=== PATIENT | female | born 1935 | race Caucasian/White ===

== ENCOUNTER → 2016-09-18 | Outpatient (CLI) | payer OTHER, MEDICARE ==
[~2016-09-18] MED LIST: AMLODIPINE BESY10 MG PO; ATORVASTATIN CA10 MG PO; VITAMIN B12 100MCG PO; VITAMIN D1000 INTUN PO
== END | disposition home or self-care (01) ==
DX: M17.11 Unilateral primary osteoarthritis, right knee (principal)
CPT/HCPCS: 97110 GP; 97150 GO; 97161 GP; 97165 GO; G8978 GP; G8979 GP; G8980 GP; G8987 GO; G8988 GO; G8989 GO

== ENCOUNTER 2016-10-29 11:22 | Inpatient (IN) | payer OTHER, MEDICARE ==
[~2016-10-29] VITALS: Ht 154.9 cm; Wt 76.7 kg
[~2016-10-29 11:22] MED LIST changes: +IRON325 M1 PO; +MULTI-DAY VITA1 EACH PO
[2016-10-29 12:05] VITALS: BP 154/72
[2016-10-29 12:20] VITALS: BP 154/72
[2016-10-29 15:59] LABS: HEMATOCRIT 34.9 % (36.0-46.0); MCH 31.1 PG (29.0-34.0); MCHC 33.2 G/DL (30.0-36.0); MCV 93.6 FL (83-99); MEAN PLAT.VOLUME 9.9 uM^3 (9.5-12.4); PLATELET COUNT 268 K/uL (156-360); RBC DIS.WIDTH-CV 12.6 % (11.8-14.6); RBC DIS.WIDTH-SD 43.2 % (39-53); RED BLOOD COUNT 3.73 M/uL (3.80-5.20); WHITE BLOOD COUNT 6.9 K/uL (4.1-10.2)
[2016-10-29 16:30] VITALS: BP 130/63
[2016-10-29 20:11] VITALS: BP 169/76
[2016-10-30 00:14] VITALS: BP 162/72
[2016-10-30 04:24] VITALS: BP 134/64
[2016-10-30 06:06] LABS: MCV 93.8 FL (83-99)
[2016-10-30 06:29] LABS: ANION GAP 9 MEQ/L (2-14); CHLORIDE 102 MEQ/L (99-109); GFR ESTIMATE (CALCULATED) > 59 mL/min/; GLUCOSE 114 mg/dL (70-99); POTASSIUM 3.6 MEQ/L (3.7-5.4); SAMPLE HEMOLYSIS CHECK 0; SAMPLE ICTERIC CHECK 0; SAMPLE LIPEMIA CHECK 0; SODIUM 137 MEQ/L (136-147); UREA NITROGEN (BUN) 11 mg/dL (9-23)
[2016-10-30 08:09] VITALS: BP 179/79
[2016-10-30 12:18] VITALS: BP 172/76
[2016-10-30 16:03] VITALS: BP 136/63
[2016-10-30 20:23] VITALS: BP 153/70
[2016-10-31 00:18] VITALS: BP 181/74
[2016-10-31 04:00] VITALS: BP 174/79
[2016-10-31 05:26] LABS: HEMATOCRIT 35.1 % (36.0-46.0); MCV 92.6 FL (83-99)
[2016-10-31 08:00] VITALS: BP 173/74
[2016-10-31] MEDS ORDERED: IRON325 M1 PO (08:33)
[2016-10-31] MEDS ORDERED: ENDOCET 5-3251 EACH PO (08:34)
[2016-10-31] MEDS ORDERED: DOCUSATE SODIU100 MG PO (08:34)
[2016-10-31] MEDS ORDERED: CELECOXIB200 MG PO (08:34)
[2016-10-31] MEDS ORDERED: LOVENOX40 MG/0.4 SC (08:34)
[2016-10-31 11:40] VITALS: BP 144/62
[2016-10-31 14:51] VITALS: BP 137/88
== END 2016-10-31 16:41 | DRG 470 ==
LOC: 2SOUTH 11:22 → 3WEST 16:28
PROVIDERS: Orthopaedic Surgery
PROC: 0SRC0J9 Replacement of Right Knee Joint with Synthetic Substitute, Cemented, Open Approach (ICD-10-PCS; principal; 2016-10-29)
DX: M17.11 Unilateral primary osteoarthritis, right knee (principal); I10 Essential (primary) hypertension; I25.10 Atherosclerotic heart disease of native coronary artery without angina pectoris; I44.7 Left bundle-branch block, unspecified; I49.3 Ventricular premature depolarization
CPT/HCPCS: 73560; 80048; 84132; 85014; 85018; 85027; J0690; J1170; J1650; J2175; J2250; J2405; J3010; J7050

== ENCOUNTER 2017-02-14 03:47 | Emergency (ER) | payer OTHER, MEDICARE ==
[~2017-02-14] VITALS: Ht 157.5 cm; Wt 78.2 kg
[~2017-02-14 03:47] MED LIST changes: +CELECOXIB200 MG PO; +DOCUSATE SODIU100 MG PO; +ENDOCET 5-3251 EACH PO; +LOVENOX40 MG/0.4 SC
[2017-02-14 04:22] LABS: HEMATOCRIT 38.7 % (36.0-46.0); MCHC 33.1 G/DL (30.0-36.0); MCV 90.6 FL (83-99); MEAN PLAT.VOLUME 10.3 uM^3 (9.5-12.4); PLATELET COUNT 299 K/uL (156-360); RBC DIS.WIDTH-CV 12.9 % (11.8-14.6); RBC DIS.WIDTH-SD 42.7 % (39-53); RED BLOOD COUNT 4.27 M/uL (3.80-5.20); WHITE BLOOD COUNT 8.8 K/uL (4.1-10.2)
[2017-02-14 04:30] LABS: CHLORIDE 103 mEq/L (99-109)
[2017-02-14 04:31] LABS: POTASSIUM 3.6 mEq/L (3.7-5.4); SODIUM 139 mEq/L (136-147)
[2017-02-14 04:33] LABS: GLUCOSE 141 mg/dL (70-99)
[2017-02-14 04:34] LABS: ANION GAP 13 MEQ/L (2-14)
[2017-02-14 04:35] LABS: TOTAL BILIRUBIN 0.5 mg/dL (0.0-1.0)
[2017-02-14 04:36] LABS: ALKALINE PHOSPHATASE 71 IU/L (3-129)
[2017-02-14 04:37] LABS: GFR ESTIMATE (CALCULATED) > 59 mL/min/
[2017-02-14 04:38] LABS: DIRECT BILIRUBIN 0.2 mg/dL (0.0-0.3); UREA NITROGEN (BUN) 21 mg/dL (9-23)
[2017-02-14 04:40] LABS: LIPASE 30 U/L (1.0-51.0)
[2017-02-14 05:23] LABS: ADD MIUA? YES; BILIRUBIN NEGATIVE; BLOOD MODERATE; COLOR YELLOW ((YELLOW)); GLUCOSE (STRIP) NEGATIVE; KETONES NEGATIVE; LEUKOCYTES SMALL; NITRITE NEGATIVE; PROTEIN (STRIP) 30; SPECIFIC GRAVITY 1.011 (1.000-1.030); UROBILINOGEN 0.2 MG/DL (0.2-1.0)
[2017-02-14 05:35] VITALS: BP 156/66
[2017-02-14] MEDS ORDERED: KEFLEX500 MG PO (05:37)
[2017-02-14] MEDS ORDERED: ZOFRAN4 MG PO (05:37)
[2017-02-14] MEDS ORDERED: PERCOCET 5/31 TABLET PO (05:37)
[2017-02-14] MEDS ORDERED: FLOMAX0.4 MG PO (05:37)
[2017-02-14 06:03] LABS: AMORPHOUS URATES CRYSTALS 1+; BACTERIA NONE SEEN /HPF; EPITHELIAL CELLS 1+ /HPF; MUCUS 1+ /LPF; RED BLOOD CELLS 30-40 /HPF (0-5); UCUL ADDED? NO
== END 2017-02-14 06:46 | disposition home or self-care (01) ==
LOC: EME → EDBD 03:47 → EME 06:46
PROVIDERS: Emergency Medicine
DX: N13.2 Hydronephrosis with renal and ureteral calculous obstruction (principal); I10 Essential (primary) hypertension
CPT/HCPCS: 74176; 80048; 80076; 81003; 83690; 85027; 99281; 99284; J7030

== ENCOUNTER 2017-03-02 11:05 | Inpatient (IN) | payer OTHER, MEDICARE ==
[~2017-03-02] VITALS: Ht 154.9 cm; Wt 69.7 kg
[~2017-03-02 11:05] MED LIST changes: +FLOMAX0.4 MG PO; +KEFLEX500 MG PO; +PERCOCET 5/31 TABLET PO; +ZOFRAN4 MG PO
[2017-03-02 11:59] LABS: HEMATOCRIT 40.3 % (36.0-46.0); MCH 30.8 PG (29.0-34.0); MCHC 33.5 G/DL (30.0-36.0); MCV 91.8 FL (83-99); MEAN PLAT.VOLUME 9.6 uM^3 (9.5-12.4); PLATELET COUNT 328 K/uL (156-360); RBC DIS.WIDTH-CV 12.4 % (11.8-14.6); RBC DIS.WIDTH-SD 41.9 % (39-53); RED BLOOD COUNT 4.39 M/uL (3.80-5.20); WHITE BLOOD COUNT 14.8 K/uL (4.1-10.2)
[2017-03-02 12:22] LABS: CHLORIDE 100 mEq/L (99-109)
[2017-03-02 12:23] LABS: POTASSIUM 3.4 mEq/L (3.7-5.4); SODIUM 138 mEq/L (136-147)
[2017-03-02 12:25] LABS: GLUCOSE 123 mg/dL (70-99)
[2017-03-02 12:26] LABS: ANION GAP 11 MEQ/L (2-14)
[2017-03-02 12:27] LABS: TOTAL BILIRUBIN 1.1 mg/dL (0.0-1.0)
[2017-03-02 12:28] LABS: ALKALINE PHOSPHATASE 80 IU/L (3-129); GFR ESTIMATE (CALCULATED) 51 mL/min/
[2017-03-02 12:30] LABS: UREA NITROGEN (BUN) 11 mg/dL (9-23)
[2017-03-02 13:39] LABS: ADD MIUA? YES; BILIRUBIN NEGATIVE; BLOOD SMALL; COLOR AMBER ((YELLOW)); GLUCOSE (STRIP) NEGATIVE; KETONES 20; LEUKOCYTES LARGE; NITRITE NEGATIVE; PROTEIN (STRIP) 100; SPECIFIC GRAVITY 1.029 (1.000-1.030); UROBILINOGEN 0.2 MG/DL (0.2-1.0)
[2017-03-02 14:11] LABS: BACTERIA 1+ /HPF; CRYSTALS PRESENT; EPITHELIAL CELLS RARE /HPF; MUCUS NONE SEEN /LPF; UCUL ADDED? NO; WHITE BLOOD CELLS 15-20 /HPF (0-5)
[2017-03-02 14:12] LABS: CALCIUM OXALATE CRYSTALS FEW /HPF
[2017-03-02] MEDS ORDERED: PERCOCET 5/31 TABLET PO (15:53)
[2017-03-02] MEDS ORDERED: FLOMAX0.4 MG PO (15:55)
[2017-03-02 17:38] VITALS: BP 182/77
[2017-03-02 19:47] VITALS: BP 171/53
[2017-03-02 20:20] VITALS: BP 152/68
[2017-03-02 23:22] VITALS: BP 154/56
[2017-03-03 03:53] VITALS: BP 138/64
[2017-03-03 06:50] LABS: ANION GAP 8 MEQ/L (2-14); CHLORIDE 108 MEQ/L (99-109); GFR ESTIMATE (CALCULATED) > 59 mL/min/; GLUCOSE 97 mg/dL (70-99); SAMPLE HEMOLYSIS CHECK 0; SAMPLE ICTERIC CHECK 0; SAMPLE LIPEMIA CHECK 0; SODIUM 140 MEQ/L (136-147); UREA NITROGEN (BUN) 13 mg/dL (9-23)
[2017-03-03 06:55] LABS: POTASSIUM 4.1 MEQ/L (3.7-5.4)
[2017-03-03 07:10] VITALS: BP 137/60
[2017-03-03 07:10] LABS: HEMATOCRIT 31.1 % (36.0-46.0); MCH 30.7 PG (29.0-34.0); MCHC 33.1 G/DL (30.0-36.0); MCV 92.8 FL (83-99); MEAN PLAT.VOLUME 9.9 uM^3 (9.5-12.4); PLATELET COUNT 243 K/uL (156-360); RBC DIS.WIDTH-CV 12.8 % (11.8-14.6); RBC DIS.WIDTH-SD 43.5 % (39-53); WHITE BLOOD COUNT 12.2 K/uL (4.1-10.2)
[2017-03-03 07:12] LABS: RED BLOOD COUNT 3.35 M/uL (3.80-5.20)
[2017-03-03 11:30] VITALS: BP 135/63
[2017-03-03 15:20] VITALS: BP 159/72
[2017-03-03 19:03] VITALS: BP 143/64
[2017-03-03 22:49] VITALS: BP 147/67
[2017-03-04 06:27] LABS: HEMATOCRIT 31.4 % (36.0-46.0); MCH 30.7 PG (29.0-34.0); MCHC 32.5 G/DL (30.0-36.0); MCV 94.6 FL (83-99); PLATELET COUNT 250 K/uL (156-360); RBC DIS.WIDTH-CV 12.8 % (11.8-14.6); RBC DIS.WIDTH-SD 44.5 % (39-53); RED BLOOD COUNT 3.32 M/uL (3.80-5.20); WHITE BLOOD COUNT 8.6 K/uL (4.1-10.2)
[2017-03-04 06:49] LABS: ANION GAP 9 MEQ/L (2-14); CHLORIDE 105 MEQ/L (99-109); GFR ESTIMATE (CALCULATED) > 59 mL/min/; GLUCOSE 76 mg/dL (70-99); POTASSIUM 3.9 MEQ/L (3.7-5.4); SAMPLE HEMOLYSIS CHECK 0; SAMPLE ICTERIC CHECK 0; SAMPLE LIPEMIA CHECK 0; SODIUM 138 MEQ/L (136-147); UREA NITROGEN (BUN) 10 mg/dL (9-23)
[2017-03-04 09:00] VITALS: BP 181/77
[2017-03-04 11:41] VITALS: BP 137/61
[2017-03-04 20:20] VITALS: BP 159/72
[2017-03-05 00:25] VITALS: BP 167/74
[2017-03-05 04:44] VITALS: BP 165/69
[2017-03-05 08:39] VITALS: BP 184/80
[2017-03-05 16:23] VITALS: BP 157/72
[2017-03-05 19:10] VITALS: BP 170/82
[2017-03-05 22:48] VITALS: BP 144/64
[2017-03-06 06:55] LABS: HEMATOCRIT 31.6 % (36.0-46.0); MCH 31.6 PG (29.0-34.0); MCHC 33.9 G/DL (30.0-36.0); MCV 93.2 FL (83-99); PLATELET COUNT 271 K/uL (156-360); RBC DIS.WIDTH-CV 12.8 % (11.8-14.6); RBC DIS.WIDTH-SD 43.7 % (39-53); RED BLOOD COUNT 3.39 M/uL (3.80-5.20); WHITE BLOOD COUNT 7.3 K/uL (4.1-10.2)
[2017-03-06 07:21] LABS: ANION GAP 9 MEQ/L (2-14); CHLORIDE 101 MEQ/L (99-109); GFR ESTIMATE (CALCULATED) > 59 mL/min/; GLUCOSE 88 mg/dL (70-99); SAMPLE HEMOLYSIS CHECK 0; SAMPLE ICTERIC CHECK 0; SAMPLE LIPEMIA CHECK 0; SODIUM 142 MEQ/L (136-147); UREA NITROGEN (BUN) 4 mg/dL (9-23)
[2017-03-06 07:30] VITALS: BP 164/76
[2017-03-06] MEDS ORDERED: DOCUSATE SODIU100 MG PO (11:22)
[2017-03-06] MEDS ORDERED: FLOMAX0.4 MG PO (11:22)
[2017-03-06] MEDS ORDERED: PERCOCET 5/31 TABLET PO (11:22)
[2017-03-06 12:18] VITALS: BP 169/73
== END 2017-03-06 13:20 | disposition home or self-care (01) | DRG 669 ==
LOC: EME 11:05 → EDOF 16:11 → 5EAST 16:11
PROVIDERS: Internal Medicine; Nurse Practitioner Family; Urology
DX: N13.2 Hydronephrosis with renal and ureteral calculous obstruction (principal); N39.0 Urinary tract infection, site not specified; I48.91 Unspecified atrial fibrillation; I10 Essential (primary) hypertension; I25.10 Atherosclerotic heart disease of native coronary artery without angina pectoris; I44.7 Left bundle-branch block, unspecified; I70.1 Atherosclerosis of renal artery; K59.00 Constipation, unspecified; R60.9 Edema, unspecified; M19.90 Unspecified osteoarthritis, unspecified site; E78.5 Hyperlipidemia, unspecified; H93.19 Tinnitus, unspecified ear; E66.9 Obesity, unspecified; Z68.29 Body mass index [BMI] 29.0-29.9, adult; Z87.442 Personal history of urinary calculi; Z85.828 Personal history of other malignant neoplasm of skin; Z96.612 Presence of left artificial shoulder joint; Z96.651 Presence of right artificial knee joint
CPT/HCPCS: 74000; 74020; 74176; 76000; 76770; 80048; 80053; 81003; 82365 90; 85027; 87086; 93005; 94799; 99281; 99285; C1769; C1876; J0360; J0696; J1170; J1650; J1885; J2175; J2250; J2270; J2405; J3010; J7030; J7050; J7120; S0028

== ENCOUNTER 2017-07-07 22:03 | Inpatient (IN) | payer OTHER, MEDICARE ==
[~2017-07-07] VITALS: Ht 154.9 cm; Wt 69.0 kg
[~2017-07-07 22:03] MED LIST changes: +ALEVE220 MG PO; +DAILY MULTIPLE1 EAC2 PO
[2017-07-08 07:28] VITALS: BP 153/67
[2017-07-08 12:00] LABS: MCH 30.9 PG (29.0-34.0); MCHC 33.4 G/DL (30.0-36.0); MCV 92.3 FL (83-99); PLATELET COUNT 280 K/uL (156-360); RBC DIS.WIDTH-CV 12.7 % (11.8-14.6); RED BLOOD COUNT 3.79 M/uL (3.80-5.20); WHITE BLOOD COUNT 8.6 K/uL (4.1-10.2)
[2017-07-08 12:11] VITALS: BP 138/62
[2017-07-08 16:10] VITALS: BP 110/62
[2017-07-08 20:15] VITALS: BP 145/64
[2017-07-09 00:10] VITALS: BP 142/62
[2017-07-09 04:00] VITALS: BP 124/57
[2017-07-09 05:32] LABS: HEMATOCRIT 31.6 % (36.0-46.0)
[2017-07-09 05:58] LABS: ANION GAP 5 MEQ/L (2-14); CHLORIDE 103 MEQ/L (99-109); GFR ESTIMATE (CALCULATED) > 59 mL/min/; GLUCOSE 91 mg/dL (70-99); POTASSIUM 3.9 MEQ/L (3.7-5.4); SAMPLE HEMOLYSIS CHECK 0; SAMPLE ICTERIC CHECK 0; SAMPLE LIPEMIA CHECK 0; UREA NITROGEN (BUN) 15 mg/dL (9-23)
[2017-07-09 06:30] LABS: SODIUM 136 MEQ/L (136-147)
[2017-07-09 08:19] VITALS: BP 138/85
[2017-07-09 12:17] VITALS: BP 145/67
[2017-07-09 15:48] VITALS: BP 151/65
[2017-07-09 19:53] VITALS: BP 146/70
[2017-07-10 00:27] VITALS: BP 171/73
[2017-07-10 04:13] VITALS: BP 146/62
[2017-07-10 05:40] LABS: HEMATOCRIT 31.8 % (36.0-46.0); MCV 92.7 FL (83-99)
[2017-07-10 08:13] VITALS: BP 157/68
[2017-07-10] MEDS ORDERED: LOVENOX40 MG/0.4 SC (08:21)
[2017-07-10] MEDS ORDERED: DOCUSATE SODIU100 MG PO (08:21)
[2017-07-10] MEDS ORDERED: HYDROCODON-ACE1 EAC7 PO (08:21)
[2017-07-10 12:07] VITALS: BP 143/62
== END 2017-07-10 13:10 | DRG 502 ==
LOC: ENRESERV 22:03 → 2SOUTH 07-08 06:27 → 3WEST 07-08 11:55
PROVIDERS: Orthopaedic Surgery
PROC: 0MNN0ZZ Release Right Knee Bursa and Ligament, Open Approach (ICD-10-PCS; principal; 2017-07-08)
DX: T84.092A Other mechanical complication of internal right knee prosthesis, initial encounter (principal); Y83.1 Surgical operation with implant of artificial internal device as the cause of abnormal reaction of the patient, or of later complication, without mention of misadventure at the time of the procedure; I10 Essential (primary) hypertension; H93.19 Tinnitus, unspecified ear; M19.90 Unspecified osteoarthritis, unspecified site; Z85.828 Personal history of other malignant neoplasm of skin; I49.9 Cardiac arrhythmia, unspecified
CPT/HCPCS: 73562; 80048; 85014; 85018; 85027; J0131; J0690; J1650; J3010; J7030; J7050

== ENCOUNTER 2017-12-31 09:59 | Inpatient (IN) | payer OTHER, MEDICARE ==
[~2017-12-31] VITALS: Ht 154.9 cm; Wt 74.5 kg
[~2017-12-31 09:59] MED LIST changes: +HYDROCODON-ACE1 EAC7 PO
[2017-12-31 10:41] LABS: HEMATOCRIT 27.6 % (36.0-46.0); MCH 29.9 PG (29.0-34.0); MCHC 33.3 G/DL (30.0-36.0); MCV 89.6 FL (83-99); RBC DIS.WIDTH-CV 16.9 % (11.8-14.6); RBC DIS.WIDTH-SD 52.8 % (39-53); WHITE BLOOD COUNT 11.3 K/uL (4.1-10.2)
[2017-12-31 10:44] LABS: HEMOGLOBIN 9.2 G/DL (11.9-15.5); PLATELET COUNT 282 K/uL (156-360); RED BLOOD COUNT 3.08 M/uL (3.80-5.20)
[2017-12-31 10:48] LABS: INTER. NORMALIZED RATIO 1.4
[2017-12-31 10:50] LABS: PTT 26.8 SEC (25-37)
[2017-12-31 10:52] LABS: CHLORIDE 97 mEq/L (99-109); POTASSIUM 3.2 mEq/L (3.7-5.4); SODIUM 134 mEq/L (136-147)
[2017-12-31 10:53] LABS: MAGNESIUM 1.4 mg/dL (1.3-2.7)
[2017-12-31 10:54] LABS: GLUCOSE 93 mg/dL (70-99)
[2017-12-31 10:58] LABS: CREATININE 0.8 mg/dL (0.6-1.3); GFR ESTIMATE (CALCULATED) > 59 mL/min/
[2017-12-31 10:59] LABS: UREA NITROGEN (BUN) 12 mg/dL (9-23)
[2017-12-31 11:04] LABS: TROP-I INTERPRETATION NEGATIVE; TROPONIN-I 0.09 ng/mL (0.0-0.30)
[2017-12-31 12:10] LABS: ANISOCYTOSIS 2+; BASOPHIL (%) 0.1 % (0-1); EOSINOPHIL (%) 0.5 % (0-5); EOSINOPHIL COUNT 0.1 K/uL (0-0.3); IMMATURE GRANULOCYTE (%) 1.9 % (0.0-0.7); LYMPHOCYTE (%) 15.6 % (15-42); LYMPHOCYTE COUNT 1.8 K/uL (1.0-2.8); MACROCYTES 1+; MICROCYTOSIS 1+; MONOCYTE (%) 9.4 % (3-12); MONOCYTE COUNT 1.1 K/uL (0-0.8); NEUTROPHIL (%) 72.5 % (45-76); NEUTROPHIL COUNT 8.2 K/uL (1.8-6.4); POLYCHROMASIA 1+
[2017-12-31 15:12] LABS: APPEARANCE CLEAR ((CLEAR)); BILIRUBIN NEGATIVE; BLOOD NEGATIVE; COLOR STRAW ((YELLOW)); GLUCOSE (STRIP) NEGATIVE; KETONES NEGATIVE; LEUKOCYTES NEGATIVE; NITRITE NEGATIVE; PROTEIN (STRIP) NEGATIVE; SPECIFIC GRAVITY 1.012 (1.000-1.030); UCUL ADDED? NO; UROBILINOGEN 0.2 MG/DL (0.2-1.0)
[2017-12-31 16:45] VITALS: BP 150/79
[2017-12-31 18:13] LABS: TROP-I INTERPRETATION NEGATIVE; TROPONIN-I 0.15 ng/mL (0.0-0.30)
[2017-12-31 18:20] LABS: ALBUMIN 2.2 G/DL (3.2-4.8); ALKALINE PHOSPHATASE 58 IU/L (3-129); ALT (GPT) 14 IU/L (3-49); AST (GOT) 16 IU/L (2-34); DIRECT BILIRUBIN 0.1 mg/dL (0.0-0.3); TOTAL BILIRUBIN 0.5 MG/DL (0.0-1.0); TOTAL PROTEIN 8.3 G/DL (6.4-8.3)
[2017-12-31 19:00] VITALS: BP 149/69
[2018-01-01 00:45] VITALS: BP 161/87
[2018-01-01 00:52] LABS: TROP-I INTERPRETATION NEGATIVE; TROPONIN-I 0.15 ng/mL (0.0-0.30)
[2018-01-01 03:20] LABS: HEMATOCRIT 28.4 % (36.0-46.0); HEMOGLOBIN 9.5 G/DL (11.9-15.5); MCH 30.2 PG (29.0-34.0); MCHC 33.5 G/DL (30.0-36.0); MCV 90.2 FL (83-99); NRBC (%) 0.2 /100 WBC (0-0); PLATELET COUNT 299 K/uL (156-360); RBC DIS.WIDTH-CV 17.2 % (11.8-14.6); RBC DIS.WIDTH-SD 53.9 % (39-53); RED BLOOD COUNT 3.15 M/uL (3.80-5.20)
[2018-01-01 03:28] LABS: ALBUMIN 2.5 g/dL (3.2-4.8)
[2018-01-01 03:29] LABS: CHLORIDE 98 mEq/L (99-109); POTASSIUM 3.5 mEq/L (3.7-5.4); SODIUM 133 mEq/L (136-147)
[2018-01-01 03:31] LABS: GLUCOSE 109 mg/dL (70-99); TOTAL PROTEIN 9.4 g/dL (6.4-8.3)
[2018-01-01 03:33] LABS: TOTAL BILIRUBIN 0.5 mg/dL (0.0-1.0)
[2018-01-01 03:33] LABS: BASE EXCESS 1.9 mEq/L (-3 to +3); BICARBONATE 25.1 mEq/L (22-26); CARBOXY HGB 1.8 % (0-5); METHEMOGLOBIN 1.2 % (0-1.5); PCO2 33 mm Hg (35-45); PO2 52 mm Hg (80-100); pH 7.49 (7.35-7.45)
[2018-01-01 03:34] LABS: ALKALINE PHOSPHATASE 82 IU/L (3-129)
[2018-01-01 03:34] LABS: COMMENTS - BLOOD GASES C+A+; DEVICE HIGH FLOW NC; O2 FLOW 15 L/MIN; SITE RR
[2018-01-01 03:35] LABS: GFR ESTIMATE (CALCULATED) 57 mL/min/
[2018-01-01 03:36] LABS: AST (GOT) 24 IU/L (2-34); UREA NITROGEN (BUN) 15 mg/dL (9-23)
[2018-01-01 03:37] LABS: ALT (GPT) 18 IU/L (3-49)
[2018-01-01 03:41] LABS: TROP-I INTERPRETATION NEGATIVE; TROPONIN-I 0.12 ng/mL (0.0-0.30)
[2018-01-01 04:12] VITALS: BP 180/92
[2018-01-01 07:58] VITALS: BP 113/70; BP 138/82
[2018-01-01 11:46] VITALS: BP 162/86
[2018-01-01] MEDS ORDERED: XANAX0.25 MG PO (13:03)
[2018-01-01] MEDS ORDERED: KEFLEX500 MG PO (13:04)
[2018-01-01] MEDS ORDERED: LASIX20 MG PO (13:05)
[2018-01-01] MEDS ORDERED: LEXAPRO10 MG PO (13:05)
[2018-01-01] MEDS ORDERED: METOPROLOL SUCC50 MG PO (13:06)
[2018-01-01] MEDS ORDERED: NORVASC10 MG PO (13:07)
[2018-01-01] MEDS ORDERED: PREDNISONE50 MG PO (13:07)
[2018-01-01] MEDS ORDERED: CYANOCOBALAM1000 MCG PO (13:08)
[2018-01-01] MEDS ORDERED: VIBRAMYCIN100 MG PO (13:09)
[2018-01-01] MEDS ORDERED: IRON325 M1 PO (13:09)
[2018-01-01] MEDS ORDERED: CLARITIN-D 21 TABLET PO (13:10)
[2018-01-01 17:23] VITALS: BP 162/81
[2018-01-01 20:00] VITALS: BP 168/80
[2018-01-02] VITALS (7 sets, daily range): BP systolic 151–180; BP diastolic 69–93
[2018-01-02 05:18] LABS: HEMATOCRIT 26.5 % (36.0-46.0); HEMOGLOBIN 8.6 G/DL (11.9-15.5); MCH 29.9 PG (29.0-34.0); MCHC 32.5 G/DL (30.0-36.0); PLATELET COUNT 323 K/uL (156-360); RBC DIS.WIDTH-CV 17.6 % (11.8-14.6); RBC DIS.WIDTH-SD 55.9 % (39-53); RED BLOOD COUNT 2.88 M/uL (3.80-5.20); WHITE BLOOD COUNT 10.2 K/uL (4.1-10.2)
[2018-01-02 05:44] LABS: CHLORIDE 96 MEQ/L (99-109); GFR ESTIMATE (CALCULATED) 57 mL/min/; GLUCOSE 95 mg/dL (70-99); IRON 39 MCG/DL (35-150); POTASSIUM 3.6 MEQ/L (3.7-5.4); SODIUM 132 MEQ/L (136-147); TRANSFERRIN (TIBC) 126.3 mg/dL (215-380); TRANSFERRIN SATUR. 31 % (20-55); UREA NITROGEN (BUN) 19 mg/dL (9-23)
[2018-01-02 06:26] LABS: ANISOCYTOSIS 1+; BASOPHIL (%) 0.1 % (0-1); EOSINOPHIL (%) 0.3 % (0-5); IMMATURE GRANULOCYTE (%) 1.4 % (0.0-0.7); LYMPHOCYTE (%) 11.9 % (15-42); LYMPHOCYTE COUNT 1.2 K/uL (1.0-2.8); MACROCYTES 1+; MONOCYTE (%) 10.4 % (3-12); MONOCYTE COUNT 1.1 K/uL (0-0.8); NEUTROPHIL (%) 75.9 % (45-76); NEUTROPHIL COUNT 7.8 K/uL (1.8-6.4); PLAT.SUFFICIENCY ADEQUATE; POLYCHROMASIA 2+
[2018-01-02 07:53] LABS: FOLIC ACID (FOLATE) 12.1 NG/ML (5.0-22.0)
[2018-01-02 08:03] LABS: FERRITIN 144 NG/ML (10-291)
[2018-01-03 00:06] VITALS: BP 138/65
[2018-01-03 04:30] VITALS: BP 160/74
[2018-01-03 05:39] LABS: HEMATOCRIT 27.2 % (36.0-46.0); HEMOGLOBIN 8.7 G/DL (11.9-15.5); MCH 29.7 PG (29.0-34.0); MCV 92.8 FL (83-99); PLATELET COUNT 338 K/uL (156-360); RBC DIS.WIDTH-CV 18.5 % (11.8-14.6); RBC DIS.WIDTH-SD 58.7 % (39-53); RED BLOOD COUNT 2.93 M/uL (3.80-5.20); WHITE BLOOD COUNT 7.9 K/uL (4.1-10.2)
[2018-01-03 06:13] LABS: ABS NEUTROPHIL COUNT 6.3; ANISOCYTOSIS 1+; ATYPICAL LYMPHOCYTE 0.9 %; CHLORIDE 97 MEQ/L (99-109); CREATININE 0.8 MG/DL (0.6-1.3); EOSINOPHIL ABS CT 0.2; EOSINOPHILS 2.6 % (0-5.0); GFR ESTIMATE (CALCULATED) > 59 mL/min/; GLUCOSE 82 mg/dL (70-99); LYMPHOCYTES 3.5 % (15.0-45.0); MACROCYTES 1+; MONOCYTES 12.3 % (0-9.0); MYELOCYTES 0.9 %; PLAT.SUFFICIENCY ADEQUATE; POLYCHROMASIA 1+; POTASSIUM 3.3 MEQ/L (3.7-5.4); SEG.NEUTROPHILS 79.8 % (46.0-76.0); SODIUM 133 MEQ/L (136-147); TOX.VACUOLIZATION 2+; UREA NITROGEN (BUN) 17 mg/dL (9-23)
[2018-01-03 08:19] VITALS: BP 174/79
[2018-01-03 09:45] LABS: STOOL OCCULT BLD 1ST SPECIMEN NEGATIVE
[2018-01-03 10:35] LABS: C DIFF TOXIN POSITIVE (NEGATIVE)
[2018-01-03 11:18] VITALS: BP 141/66
[2018-01-03 15:26] VITALS: BP 146/76
[2018-01-03 20:10] VITALS: BP 146/75
[2018-01-04 00:39] VITALS: BP 158/69
[2018-01-04 04:56] VITALS: BP 140/66
[2018-01-04 05:30] LABS: HEMATOCRIT 26.1 % (36.0-46.0); HEMOGLOBIN 8.5 G/DL (11.9-15.5); MCH 30.2 PG (29.0-34.0); MCHC 32.6 G/DL (30.0-36.0); MCV 92.9 FL (83-99); PLATELET COUNT 315 K/uL (156-360); RBC DIS.WIDTH-CV 18.4 % (11.8-14.6); RBC DIS.WIDTH-SD 58.5 % (39-53); RED BLOOD COUNT 2.81 M/uL (3.80-5.20); WHITE BLOOD COUNT 9.6 K/uL (4.1-10.2)
[2018-01-04 05:57] LABS: CHLORIDE 100 MEQ/L (99-109); CREATININE 0.8 MG/DL (0.6-1.3); GFR ESTIMATE (CALCULATED) > 59 mL/min/; GLUCOSE 85 mg/dL (70-99); POTASSIUM 4.6 MEQ/L (3.7-5.4); SODIUM 131 MEQ/L (136-147); UREA NITROGEN (BUN) 17 mg/dL (9-23)
[2018-01-04 06:53] LABS: ABS NEUTROPHIL COUNT 6.9; ATYPICAL LYMPHOCYTE 9.5 %; BASOPHILS 0.9 %; EOSINOPHIL ABS CT 0.1; EOSINOPHILS 0.9 % (0-5.0); LYMPHOCYTES 5.2 % (15.0-45.0); METAMYELOCYTES 0.9 %; MONOCYTES 10.4 % (0-9.0); SEG.NEUTROPHILS 72.2 % (46.0-76.0); SMUDGE CELLS 9.6
[2018-01-04 16:33] VITALS: BP 171/77
[2018-01-04 19:35] VITALS: BP 154/71
[2018-01-04 23:46] VITALS: BP 134/56
[2018-01-05 05:13] VITALS: BP 140/61
[2018-01-05 05:29] LABS: HEMATOCRIT 27.3 % (36.0-46.0); HEMOGLOBIN 8.6 G/DL (11.9-15.5); MCH 29.9 PG (29.0-34.0); MCHC 31.5 G/DL (30.0-36.0); MCV 94.8 FL (83-99); PLATELET COUNT 333 K/uL (156-360); RBC DIS.WIDTH-CV 18.5 % (11.8-14.6); RBC DIS.WIDTH-SD 61.7 % (39-53); RED BLOOD COUNT 2.88 M/uL (3.80-5.20); WHITE BLOOD COUNT 11.9 K/uL (4.1-10.2)
[2018-01-05 06:21] LABS: CHLORIDE 99 MEQ/L (99-109); CREATININE 0.8 MG/DL (0.6-1.3); GFR ESTIMATE (CALCULATED) > 59 mL/min/; GLUCOSE 79 mg/dL (70-99); SODIUM 133 MEQ/L (136-147); UREA NITROGEN (BUN) 15 mg/dL (9-23)
[2018-01-05 06:25] LABS: POTASSIUM 3.5 MEQ/L (3.7-5.4)
[2018-01-05 06:39] LABS: ATYPICAL LYMPHOCYTE 10.1 %; EOSINOPHIL ABS CT 0.5; EOSINOPHILS 4.6 % (0-5.0); LYMPHOCYTES 10.1 % (15.0-45.0); MONOCYTES 8.3 % (0-9.0); SEG.NEUTROPHILS 66.9 % (46.0-76.0); SMUDGE CELLS 3.7
[2018-01-05 07:28] VITALS: BP 138/72
[2018-01-05 10:57] VITALS: BP 136/76
[2018-01-05 15:13] VITALS: BP 136/82
[2018-01-05 20:35] VITALS: BP 138/59
[2018-01-06 00:10] VITALS: BP 123/58
[2018-01-06 04:30] VITALS: BP 170/71
[2018-01-06 05:19] LABS: HEMATOCRIT 27.2 % (36.0-46.0); HEMOGLOBIN 8.8 G/DL (11.9-15.5); MCH 30.7 PG (29.0-34.0); MCHC 32.4 G/DL (30.0-36.0); MCV 94.8 FL (83-99); PLATELET COUNT 330 K/uL (156-360); RBC DIS.WIDTH-CV 18.5 % (11.8-14.6); RBC DIS.WIDTH-SD 61.4 % (39-53); RED BLOOD COUNT 2.87 M/uL (3.80-5.20); WHITE BLOOD COUNT 11.6 K/uL (4.1-10.2)
[2018-01-06 05:47] LABS: CHLORIDE 99 MEQ/L (99-109); CREATININE 0.8 MG/DL (0.6-1.3); GFR ESTIMATE (CALCULATED) > 59 mL/min/; GLUCOSE 86 mg/dL (70-99); POTASSIUM 3.8 MEQ/L (3.7-5.4); SODIUM 132 MEQ/L (136-147); UREA NITROGEN (BUN) 12 mg/dL (9-23)
[2018-01-06 05:55] LABS: ABS NEUTROPHIL COUNT 7.6; ANISOCYTOSIS 2+; ATYPICAL LYMPHOCYTE 7.9 %; BASOPHILS 5.3 %; EOSINOPHIL ABS CT 0.1; EOSINOPHILS 0.9 % (0-5.0); LYMPHOCYTES 6.1 % (15.0-45.0); MACROCYTES 1+; MICROCYTOSIS 1+; PLAT.SUFFICIENCY ADEQUATE; POIKILOCYTOSIS 1+; POLYCHROMASIA 1+; SEG.NEUTROPHILS 65.8 % (46.0-76.0)
[2018-01-06 06:35] VITALS: BP 137/61
[2018-01-06] MEDS ORDERED: VANCOCIN HCL125 MG PO (16:09)
[2018-01-06] MEDS ORDERED: FUROSEMIDE40 MG PO (16:10)
[2018-01-06] MEDS ORDERED: XARELTO15 MG PO (16:10)
[2018-01-06] MEDS ORDERED: LOPRESSOR50 MG PO (16:10)
[2018-01-06] MEDS ORDERED: FLONASE16 G1 BOTH NARES (16:11)
[2018-01-06] MEDS ORDERED: DUONEB 2.5-0.5 M3 ML AEROSOL (16:16)
[2018-01-06] MEDS ORDERED: AMLODIPINE BESYL5 MG PO (16:17)
[2018-01-06] MEDS ORDERED: ENALAPRIL MALEA10 MG PO (16:17)
[2018-01-06] MEDS ORDERED: FLEXERIL5 MG PO (17:10)
[2018-01-06] MEDS ORDERED: PERCOCET 5/31 TABLET PO (17:11)
[2018-01-06 19:30] VITALS: BP 146/64
[2018-01-09 11:51] LABS: NUMBER OF MARKERS 22; SPECIMEN TYPE BONE MARROW; SPECIMEN VIABILITY 77
== END 2018-01-06 19:35 | DRG 308 ==
LOC: EME 09:59 → EDOF 14:31 → ENRESERV 14:37 → 4EAST 14:57 → EDOF 14:57 → ENRESERV 15:39 → 4EAST 16:39
PROVIDERS: Emergency Medicine; Hospitalist; Internal Medicine; Internal Medicine Hematology & Oncology
PROC: 07DR3ZX Extraction of Iliac Bone Marrow, Percutaneous Approach, Diagnostic (ICD-10-PCS; principal; 2018-01-03)
DX: I48.92 Unspecified atrial flutter (principal); J96.01 Acute respiratory failure with hypoxia; I11.0 Hypertensive heart disease with heart failure; I50.23 Acute on chronic systolic (congestive) heart failure; J18.9 Pneumonia, unspecified organism; Y95 Nosocomial condition; A04.72 Enterocolitis due to Clostridium difficile, not specified as recurrent; E87.6 Hypokalemia; E83.51 Hypocalcemia; R59.1 Generalized enlarged lymph nodes; D64.9 Anemia, unspecified; I25.10 Atherosclerotic heart disease of native coronary artery without angina pectoris; E78.5 Hyperlipidemia, unspecified; I27.20 Pulmonary hypertension, unspecified; I44.7 Left bundle-branch block, unspecified; I48.91 Unspecified atrial fibrillation; N63.0 Unspecified lump in unspecified breast; E66.9 Obesity, unspecified; Z96.651 Presence of right artificial knee joint; Z96.612 Presence of left artificial shoulder joint; Z99.81 Dependence on supplemental oxygen; Z85.828 Personal history of other malignant neoplasm of skin; Z68.30 Body mass index [BMI] 30.0-30.9, adult; Z95.0 Presence of cardiac pacemaker; Z95.810 Presence of automatic (implantable) cardiac defibrillator
CPT/HCPCS: 36600; 71045; 71275; 74177; 77012; 80048; 80053; 80076; 81003; 82272; 82607; 82728; 82746; 82803; 83540; 83605; 83615; 83735; 83880; 84466; 84484; 85007; 85025; 85027; 85610; 85651; 85730; 86611 90; 87040; 87070; 87205; 87449; 87493; 87502; 87641; 93005; 93306; 94640; 94640 76; 94760; 94799; 97530 GO; 99281; 99285; J0153; J0360; J0610; J0692; J1650; J1940; J2270; J2765; J2930; J3010; J3370; J3480; J7030; J7050

== ENCOUNTER 2018-02-05 13:06 | Inpatient (IN) | payer OTHER, MEDICARE ==
[~2018-02-05] VITALS: Ht 154.9 cm; Wt 69.4 kg
[~2018-02-05 13:06] MED LIST changes: +AMLODIPINE BESYL5 MG PO; +CLARITIN-D 21 TABLET PO; +CYANOCOBALAM1000 MCG PO; +DUONEB 2.5-0.5 M3 ML AEROSOL; +ENALAPRIL MALEA10 MG PO; +FLEXERIL5 MG PO; +FLONASE16 G1 BOTH NARES; +FUROSEMIDE40 MG PO; +LASIX20 MG PO; +LEXAPRO10 MG PO; +LOPRESSOR50 MG PO; +METOPROLOL SUCC50 MG PO; +NORVASC10 MG PO; +PREDNISONE50 MG PO; +VANCOCIN HCL125 MG PO; +VIBRAMYCIN100 MG PO; +XANAX0.25 MG PO; +XARELTO15 MG PO
[2018-02-05 13:53] LABS: HEMATOCRIT 31.5 % (36.0-46.0); HEMOGLOBIN 10.6 G/DL (11.9-15.5); MCHC 33.7 G/DL (30.0-36.0); MCV 95.2 FL (83-99); PLATELET COUNT 269 K/uL (156-360); RBC DIS.WIDTH-CV 16.3 % (11.8-14.6); RBC DIS.WIDTH-SD 57.8 % (39-53); RED BLOOD COUNT 3.31 M/uL (3.80-5.20); WHITE BLOOD COUNT 13.9 K/uL (4.1-10.2)
[2018-02-05 13:59] LABS: ALBUMIN 2.8 g/dL (3.2-4.8); CHLORIDE 96 mEq/L (99-109); POTASSIUM 3.6 mEq/L (3.7-5.4); SODIUM 134 mEq/L (136-147)
[2018-02-05 14:02] LABS: GLUCOSE 89 mg/dL (70-99); TOTAL PROTEIN 9.2 g/dL (6.4-8.3)
[2018-02-05 14:03] LABS: TOTAL BILIRUBIN 0.6 mg/dL (0.0-1.0)
[2018-02-05 14:05] LABS: ALKALINE PHOSPHATASE 85 IU/L (3-129); CREATININE 0.7 mg/dL (0.6-1.3); GFR ESTIMATE (CALCULATED) > 59 mL/min/
[2018-02-05 14:06] LABS: UREA NITROGEN (BUN) 13 mg/dL (9-23)
[2018-02-05 14:07] LABS: AST (GOT) 35 IU/L (2-34)
[2018-02-05 14:08] LABS: ALT (GPT) 26 IU/L (3-49)
[2018-02-05 15:23] LABS: ABS NEUTROPHIL COUNT 11.6; ANISOCYTOSIS 1+; ATYPICAL LYMPHOCYTE 3.6 %; BAND NEUTROPHILS 13.5 % (0-8.0); BASOPH.STIPPLING 1+; EOSINOPHIL ABS CT 0.1; EOSINOPHILS 0.9 % (0-5.0); LYMPHOCYTES 8.1 % (15.0-45.0); MACROCYTES 1+; MONOCYTES 3.6 % (0-9.0); PLAT.SUFFICIENCY ADEQUATE; POLYCHROMASIA 1+; SEG.NEUTROPHILS 70.3 % (46.0-76.0)
[2018-02-05 15:27] LABS: APPEARANCE CLEAR ((CLEAR)); BILIRUBIN NEGATIVE; BLOOD NEGATIVE; COLOR YELLOW ((YELLOW)); GLUCOSE (STRIP) NEGATIVE; KETONES NEGATIVE; LEUKOCYTES NEGATIVE; NITRITE NEGATIVE; PROTEIN (STRIP) NEGATIVE; SPECIFIC GRAVITY 1.011 (1.000-1.030); UCUL ADDED? NO; UROBILINOGEN 0.2 MG/DL (0.2-1.0)
[2018-02-05] MEDS ORDERED: FUROSEMIDE40 MG PO (17:26)
[2018-02-05] MEDS ORDERED: ENALAPRIL MALEA20 MG PO (17:26)
[2018-02-05] MEDS ORDERED: ZOFRAN8 MG PO (17:27)
[2018-02-05] MEDS ORDERED: FLONASE16 G1 BOTH NARES (17:27)
[2018-02-05] MEDS ORDERED: XANAX0.25 MG PO (17:28)
[2018-02-05] MEDS ORDERED: COMPAZINE5 MG PO (17:28)
[2018-02-05] MEDS ORDERED: PREDNISONE5 MG PO (17:30)
[2018-02-05 19:10] VITALS: BP 151/71
[2018-02-05 23:52] VITALS: BP 120/65
[2018-02-06 03:55] VITALS: BP 145/77
[2018-02-06 05:49] LABS: HEMATOCRIT 28.2 % (36.0-46.0); HEMOGLOBIN 9.1 G/DL (11.9-15.5); MCH 30.8 PG (29.0-34.0); MCHC 32.3 G/DL (30.0-36.0); MCV 95.6 FL (83-99); PLATELET COUNT 203 K/uL (156-360); RBC DIS.WIDTH-CV 16.3 % (11.8-14.6); RBC DIS.WIDTH-SD 57.2 % (39-53); RED BLOOD COUNT 2.95 M/uL (3.80-5.20); WHITE BLOOD COUNT 9.5 K/uL (4.1-10.2)
[2018-02-06 06:32] LABS: C-REACTIVE PROTEIN 107.4 MG/L (0-10); CHLORIDE 100 MEQ/L (99-109); CREATININE 0.6 MG/DL (0.6-1.3); GFR ESTIMATE (CALCULATED) > 59 mL/min/; GLUCOSE 77 mg/dL (70-99); POTASSIUM 4.1 MEQ/L (3.7-5.4); SODIUM 132 MEQ/L (136-147); UREA NITROGEN (BUN) 12 mg/dL (9-23)
[2018-02-06 09:00] VITALS: BP 158/72
[2018-02-06 09:05] LABS: ERTH.SED.RATE 58 MM/HR (0-30)
[2018-02-06 12:35] LABS: APPEARANCE HAZY-YELLOW; MONONUCLEAR WBC'S 12 %; POLYNUCLEAR WBC'S 88 % (0-25); RED CELL COUNT 21000 /MM^3 (0-1); SYNOVIAL FLUID EOSINOPHILS 0 % (0-25); WHITE CELL COUNT 36048 /MM^3 (0-200.0)
[2018-02-06 12:36] LABS: CRYSTALS NO CRYSTALS SEEN
[2018-02-06 12:48] VITALS: BP 129/67
[2018-02-06 13:04] LABS: SYNOVIAL FLUID GLUCOSE < 10.0 MG/DL; SYNOVIAL FLUID PROTEIN 4.3 G/DL
[2018-02-06 15:03] LABS: HEMATOCRIT 27.5 % (36.0-46.0); HEMOGLOBIN 9.1 G/DL (11.9-15.5); MCV 95.5 FL (83-99)
[2018-02-06 16:44] VITALS: BP 139/66
[2018-02-06 18:29] LABS: HEMATOCRIT 29.5 % (36.0-46.0); HEMOGLOBIN 9.6 G/DL (11.9-15.5); MCH 31.5 PG (29.0-34.0); MCHC 32.5 G/DL (30.0-36.0); MCV 96.7 FL (83-99); PLATELET COUNT 221 K/uL (156-360); RBC DIS.WIDTH-CV 16.3 % (11.8-14.6); RED BLOOD COUNT 3.05 M/uL (3.80-5.20); WHITE BLOOD COUNT 10.9 K/uL (4.1-10.2)
[2018-02-06 20:34] VITALS: BP 144/69
[2018-02-06 23:09] VITALS: BP 121/69
[2018-02-07 04:04] VITALS: BP 125/59
[2018-02-07 06:35] LABS: HEMATOCRIT 24.7 % (36.0-46.0); HEMOGLOBIN 8.1 G/DL (11.9-15.5); MCH 31.2 PG (29.0-34.0); MCHC 32.8 G/DL (30.0-36.0); PLATELET COUNT 203 K/uL (156-360); RBC DIS.WIDTH-CV 15.9 % (11.8-14.6); WHITE BLOOD COUNT 9.2 K/uL (4.1-10.2)
[2018-02-07 07:07] LABS: CHLORIDE 97 MEQ/L (99-109); CREATININE 0.8 MG/DL (0.6-1.3); GFR ESTIMATE (CALCULATED) > 59 mL/min/; GLUCOSE 125 mg/dL (70-99); POTASSIUM 4.5 MEQ/L (3.7-5.4); SODIUM 128 MEQ/L (136-147); UREA NITROGEN (BUN) 18 mg/dL (9-23)
[2018-02-07 07:36] VITALS: BP 122/60
[2018-02-07 12:13] VITALS: BP 122/58
[2018-02-07 20:12] VITALS: BP 120/58
[2018-02-07 23:47] VITALS: BP 127/59
[2018-02-08] VITALS (8 sets, daily range): BP systolic 126–161; BP diastolic 58–72
[2018-02-08 06:52] LABS: CHLORIDE 98 MEQ/L (99-109); CREATININE 0.7 MG/DL (0.6-1.3); GFR ESTIMATE (CALCULATED) > 59 mL/min/; POTASSIUM 4.1 MEQ/L (3.7-5.4); SODIUM 127 MEQ/L (136-147); UREA NITROGEN (BUN) 18 mg/dL (9-23)
[2018-02-08 07:01] LABS: GLUCOSE 87 mg/dL (70-99)
[2018-02-08 09:39] LABS: HEMATOCRIT 21.2 % (36.0-46.0); MCV 95.5 FL (83-99)
[2018-02-08 09:40] LABS: HEMOGLOBIN 6.8 G/DL (11.9-15.5)
[2018-02-08 11:21] LABS: HEMATOCRIT 21.4 % (36.0-46.0)
[2018-02-09 04:00] VITALS: BP 158/68
[2018-02-09 06:45] LABS: HEMATOCRIT 25.5 % (36.0-46.0); HEMOGLOBIN 8.6 G/DL (11.9-15.5); MCH 31.2 PG (29.0-34.0); MCHC 33.7 G/DL (30.0-36.0); MCV 92.4 FL (83-99); PLATELET COUNT 224 K/uL (156-360); RBC DIS.WIDTH-CV 17.3 % (11.8-14.6); RBC DIS.WIDTH-SD 58.4 % (39-53); RED BLOOD COUNT 2.76 M/uL (3.80-5.20); WHITE BLOOD COUNT 5.3 K/uL (4.1-10.2)
[2018-02-09 07:11] LABS: CHLORIDE 99 MEQ/L (99-109); CREATININE 0.7 MG/DL (0.6-1.3); GFR ESTIMATE (CALCULATED) > 59 mL/min/; GLUCOSE 79 mg/dL (70-99); POTASSIUM 4.2 MEQ/L (3.7-5.4); SODIUM 128 MEQ/L (136-147); UREA NITROGEN (BUN) 9 mg/dL (9-23)
[2018-02-09 07:39] VITALS: BP 132/62
[2018-02-09 11:02] VITALS: BP 138/63
[2018-02-09 15:08] VITALS: BP 137/65
[2018-02-09 20:41] VITALS: BP 148/68
[2018-02-10] VITALS (7 sets, daily range): BP systolic 126–158; BP diastolic 60–72
[2018-02-10 06:34] LABS: HEMATOCRIT 24.1 % (36.0-46.0); HEMOGLOBIN 8.1 G/DL (11.9-15.5); MCH 31.2 PG (29.0-34.0); MCHC 33.6 G/DL (30.0-36.0); MCV 92.7 FL (83-99); PLATELET COUNT 252 K/uL (156-360); RBC DIS.WIDTH-CV 16.9 % (11.8-14.6); RBC DIS.WIDTH-SD 57.2 % (39-53); WHITE BLOOD COUNT 5.9 K/uL (4.1-10.2)
[2018-02-10 06:55] LABS: CHLORIDE 99 MEQ/L (99-109); CREATININE 0.6 MG/DL (0.6-1.3); GFR ESTIMATE (CALCULATED) > 59 mL/min/; GLUCOSE 80 mg/dL (70-99); POTASSIUM 3.9 MEQ/L (3.7-5.4); SODIUM 127 MEQ/L (136-147); UREA NITROGEN (BUN) 7 mg/dL (9-23)
[2018-02-10 10:24] LABS: URIC ACID 2.1 mg/dL (3.1-9.2)
[2018-02-10 10:37] LABS: THYROTROPIN (TSH) 8.6 MIU/L (0.4-5.5)
[2018-02-11 04:20] VITALS: BP 154/700
[2018-02-11 06:18] LABS: HEMATOCRIT 24.3 % (36.0-46.0); MCH 30.7 PG (29.0-34.0); MCHC 32.9 G/DL (30.0-36.0); MCV 93.1 FL (83-99); PLATELET COUNT 290 K/uL (156-360); RBC DIS.WIDTH-CV 16.3 % (11.8-14.6); RBC DIS.WIDTH-SD 55.8 % (39-53); RED BLOOD COUNT 2.61 M/uL (3.80-5.20); WHITE BLOOD COUNT 6.6 K/uL (4.1-10.2)
[2018-02-11 07:10] VITALS: BP 149/65
[2018-02-11 07:25] LABS: CHLORIDE 101 MEQ/L (99-109); CREATININE 0.7 MG/DL (0.6-1.3); GFR ESTIMATE (CALCULATED) > 59 mL/min/; SODIUM 131 MEQ/L (136-147); UREA NITROGEN (BUN) 13 mg/dL (9-23)
[2018-02-11 07:26] LABS: GLUCOSE 107 mg/dL (70-99)
[2018-02-11 12:50] VITALS: BP 150/66
[2018-02-11 15:28] VITALS: BP 145/66
[2018-02-11 23:05] VITALS: BP 150/68
[2018-02-12 07:17] VITALS: BP 175/79
[2018-02-12 07:41] LABS: CHLORIDE 103 MEQ/L (99-109); CREATININE 0.6 MG/DL (0.6-1.3); GFR ESTIMATE (CALCULATED) > 59 mL/min/; GLUCOSE 108 mg/dL (70-99); SODIUM 134 MEQ/L (136-147); UREA NITROGEN (BUN) 17 mg/dL (9-23)
[2018-02-12 16:33] VITALS: BP 162/74
[2018-02-13 00:03] VITALS: BP 152/70
[2018-02-13 04:33] VITALS: BP 149/68
[2018-02-13 06:59] LABS: CHLORIDE 101 MEQ/L (99-109); CREATININE 0.6 MG/DL (0.6-1.3); GFR ESTIMATE (CALCULATED) > 59 mL/min/; GLUCOSE 88 mg/dL (70-99); POTASSIUM 3.7 MEQ/L (3.7-5.4); SODIUM 130 MEQ/L (136-147); UREA NITROGEN (BUN) 19 mg/dL (9-23)
[2018-02-13 07:38] VITALS: BP 160/71
[2018-02-13 11:32] VITALS: BP 132/59
[2018-02-13] MEDS ORDERED: K-DUR20 MEQ PO (12:02)
[2018-02-13] MEDS ORDERED: SODIUM CHLORIDE1 G1 PO (12:02)
[2018-02-13] MEDS ORDERED: FUROSEMIDE20 MG PO (12:02)
[2018-02-13] MEDS ORDERED: FLORASTOR250 MG PO (12:03)
[2018-02-13] MEDS ORDERED: ENDOCET 5-3251 EACH PO (12:04)
[2018-02-13] MEDS ORDERED: LEVO-T25 MCG PO (12:31)
[2018-02-13] MEDS ORDERED: APRESOLINE25 MG PO (12:32)
[2018-02-13] MEDS ORDERED: IRON325 M1 PO (12:33)
[2018-02-13] MEDS ORDERED: LOPRESSOR50 MG PO (12:33)
[2018-02-13] MEDS ORDERED: METRONIDAZOLE500 MG PO (12:33)
[2018-02-13] MEDS ORDERED: AMLODIPINE BESYL5 MG PO (12:34)
[2018-02-13] MEDS ORDERED: DELTASONE20 M1 PO (14:16)
[2018-02-13 15:23] VITALS: BP 153/68
== END 2018-02-13 15:37 | DRG 463 ==
LOC: EME 13:06 → 5SOUTH 16:43 → EDOF 16:43 → ENRESERV 16:44 → 5SOUTH 19:08 → ENRESERV 02-06 15:57 → 3EAST 02-06 19:50
PROVIDERS: Emergency Medicine; Family Medicine; Hospitalist; Internal Medicine; Orthopaedic Surgery; Physician Assistant; Physician Assistant Medical
DX: T84.53XA Infection and inflammatory reaction due to internal right knee prosthesis, initial encounter (principal); A41.9 Sepsis, unspecified organism; E22.2 Syndrome of inappropriate secretion of antidiuretic hormone; I48.92 Unspecified atrial flutter; C86.5 Angioimmunoblastic T-cell lymphoma; L02.214 Cutaneous abscess of groin; B96.89 Other specified bacterial agents as the cause of diseases classified elsewhere; I27.20 Pulmonary hypertension, unspecified; D64.9 Anemia, unspecified; I10 Essential (primary) hypertension; Z96.612 Presence of left artificial shoulder joint; I89.0 Lymphedema, not elsewhere classified; M17.11 Unilateral primary osteoarthritis, right knee; C44.90 Unspecified malignant neoplasm of skin, unspecified; B27.90 Infectious mononucleosis, unspecified without complication; B96.6 Bacteroides fragilis [B. fragilis] as the cause of diseases classified elsewhere; B27.00 Gammaherpesviral mononucleosis without complication; Z90.710 Acquired absence of both cervix and uterus; Z79.2 Long term (current) use of antibiotics; Z79.01 Long term (current) use of anticoagulants; Z86.19 Personal history of other infectious and parasitic diseases; Z87.01 Personal history of pneumonia (recurrent); Z87.442 Personal history of urinary calculi; Z85.828 Personal history of other malignant neoplasm of skin; Y83.1 Surgical operation with implant of artificial internal device as the cause of abnormal reaction of the patient, or of later complication, without mention of misadventure at the time of the procedure; E78.5 Hyperlipidemia, unspecified
CPT/HCPCS: 71046; 73560; 73564; 76881; 76937; 80048; 80053; 81003; 82945 91; 82948; 83605; 83615 91; 83930; 83935; 84157; 84300; 84439; 84443; 84550; 85014; 85018; 85025; 85027; 85651; 86140; 86850; 86900; 86901; 86920; 87040; 87070; 87075; 87076; 87077; 87185; 87186; 87205; 87801; 89051; 93005; 97530 GO; 97530 GP; 99281; 99285; A6214; A6260; C1713; J1100; J1170; J2543; J3010; J3370; J7030; J7050; J7512; P9016; S0020

== ENCOUNTER 2018-03-13 11:21 | Inpatient (IN) | payer OTHER, MEDICARE ==
[~2018-03-13] VITALS: Ht 154.9 cm; Wt 67.2 kg
[2018-03-13] VITALS (12 sets, daily range): BP systolic 120–154; BP diastolic 56–74
[~2018-03-13 11:21] MED LIST changes: +APRESOLINE25 MG PO; +COMPAZINE5 MG PO; +DELTASONE20 M1 PO; +ENALAPRIL MALEA20 MG PO; +FLORASTOR250 MG PO; +FUROSEMIDE20 MG PO; +K-DUR20 MEQ PO; +LEVO-T25 MCG PO; +METRONIDAZOLE500 MG PO; +PREDNISONE5 MG PO; +SODIUM CHLORIDE1 G1 PO; +ZOFRAN8 MG PO
[2018-03-13 12:06] LABS: HEMATOCRIT 16.7 % (36.0-46.0); HEMOGLOBIN 5.3 G/DL (11.9-15.5); MCHC 31.7 G/DL (30.0-36.0); MCV 107.1 FL (83-99); NRBC (%) 3.9 /100 WBC (0-0); PLATELET COUNT 206 K/uL (156-360); RBC DIS.WIDTH-CV 17.1 % (11.8-14.6); RBC DIS.WIDTH-SD 63.6 % (39-53); RED BLOOD COUNT 1.56 M/uL (3.80-5.20); WHITE BLOOD COUNT 16.3 K/uL (4.1-10.2)
[2018-03-13 12:10] LABS: CHLORIDE 104 mEq/L (99-109); POTASSIUM 4.6 mEq/L (3.7-5.4); SODIUM 131 mEq/L (136-147)
[2018-03-13 12:12] LABS: GLUCOSE 103 mg/dL (70-99)
[2018-03-13 12:16] LABS: CREATININE 1.1 mg/dL (0.6-1.3); GFR ESTIMATE (CALCULATED) 51 mL/min/
[2018-03-13 12:17] LABS: UREA NITROGEN (BUN) 21 mg/dL (9-23)
[2018-03-13 12:49] LABS: ALBUMIN 2.3 g/dL (3.2-4.8)
[2018-03-13 12:51] LABS: TOTAL PROTEIN 10.1 g/dL (6.4-8.3)
[2018-03-13 12:53] LABS: TOTAL BILIRUBIN 2.3 mg/dL (0.0-1.0)
[2018-03-13 12:54] LABS: ALKALINE PHOSPHATASE 129 IU/L (3-129)
[2018-03-13 12:57] LABS: ALT (GPT) 23 IU/L (3-49); AST (GOT) 48 IU/L (2-34); DIRECT BILIRUBIN 1.3 mg/dL (0.0-0.3)
[2018-03-13 13:50] LABS: HEMATOCRIT 17.1 % (36.0-46.0); MCH 33.5 PG (29.0-34.0); MCHC 30.4 G/DL (30.0-36.0); MCV 110.3 FL (83-99); NRBC (%) 4.2 /100 WBC (0-0); RBC DIS.WIDTH-CV 17.1 % (11.8-14.6); RBC DIS.WIDTH-SD 65.8 % (39-53); RED BLOOD COUNT 1.55 M/uL (3.80-5.20); WHITE BLOOD COUNT 15.9 K/uL (4.1-10.2)
[2018-03-13 13:56] LABS: HEMOGLOBIN 5.2 G/DL (11.9-15.5)
[2018-03-13 14:07] LABS: LACTATE DEHYDROGENASE 461 IU/L (20-246)
[2018-03-13 14:44] LABS: ABS NEUTROPHIL COUNT 11.5; ANISOCYTOSIS 1+; ATYPICAL LYMPHOCYTE 2.7 %; BAND NEUTROPHILS 16.8 % (0-8.0); BASOPH.STIPPLING 1+; EOSINOPHIL ABS CT 0.1; EOSINOPHILS 0.9 % (0-5.0); HYPOCHROMASIA 2+; LYMPHOCYTES 10.6 % (15.0-45.0); MACROCYTES 1+; METAMYELOCYTES 1.8 %; MONOCYTES 10.6 % (0-9.0); MYELOCYTES 0.9 %; NUCLEATED RBC'S 7.1; PLAT.SUFFICIENCY ADEQUATE; PLATELET COUNT 176 K/uL (156-360); POLYCHROMASIA 1+; SEG.NEUTROPHILS 55.7 % (46.0-76.0)
[2018-03-13 14:47] LABS: ABSOLUTE RETICULOCYTE CT. 0.14 M/uL (0.02-0.08); IMM.RETIC FRACTION 29.3 % (3-19); RETIC HGB EQUIVALENT 37.3 (28-36); RETICULOCYTE COUNT 9.3 % (0.5-1.8)
[2018-03-13] MEDS ORDERED: BACTRIM,SEPT1 TABLE1 PO (14:52)
[2018-03-13] MEDS ORDERED: SYNTHROID25 MCG PO (14:55)
[2018-03-13] MEDS ORDERED: K-DUR20 MEQ PO (14:56)
[2018-03-13] MEDS ORDERED: DELTASONE20 M1 PO (14:58)
[2018-03-13] MEDS ORDERED: XARELTO15 MG PO (14:58)
[2018-03-13] MEDS ORDERED: NORVASC5 MG PO (14:59)
[2018-03-13] MEDS ORDERED: GUAIFENESIN600 MG PO (15:00)
[2018-03-13] MEDS ORDERED: ZESTRIL40 MG PO (15:01)
[2018-03-13] MEDS ORDERED: APRESOLINE25 MG PO (15:03)
[2018-03-13] MEDS ORDERED: SODIUM CHLORIDE1 G1 PO (15:04)
[2018-03-13] MEDS ORDERED: ZOSYN 3.3753.375 GM IV (15:05)
[2018-03-13] MEDS ORDERED: VANCOCIN 250 M250 MG PO (15:06)
[2018-03-13] MEDS ORDERED: TYLENOL REGULA325 MG PO (15:08)
[2018-03-13] MEDS ORDERED: DULCOLAX10 MG PR (15:10)
[2018-03-13] MEDS ORDERED: DUONEB 2.5-0.5 M3 ML AEROSOL (15:10)
[2018-03-13] MEDS ORDERED: MILK OF MAGN PO (15:13)
[2018-03-13] MEDS ORDERED: MIRALAX17 GM PO (15:14)
[2018-03-13] MEDS ORDERED: PERCOCET 5/31 TABLET PO (15:16)
[2018-03-13] MEDS ORDERED: ROBITUSSIN DM118 ML PO (15:19)
[2018-03-14 01:16] LABS: MCHC 33.2 G/DL (30.0-36.0); PLATELET COUNT 205 K/uL (156-360); RBC DIS.WIDTH-CV 19.6 % (11.8-14.6); WHITE BLOOD COUNT 14.4 K/uL (4.1-10.2)
[2018-03-14 01:21] LABS: HEMOGLOBIN 7.3 G/DL (11.9-15.5); MCV 99.5 FL (83-99); RED BLOOD COUNT 2.21 M/uL (3.80-5.20)
[2018-03-14 02:32] LABS: ABS NEUTROPHIL COUNT 11.4; ANISOCYTOSIS 2+; BAND NEUTROPHILS 3.8 % (0-8.0); EOSINOPHIL ABS CT 0; HYPOCHROMASIA 1+; LYMPHOCYTES 7.5 % (15.0-45.0); MACROCYTES 2+; METAMYELOCYTES 3.8 %; MONOCYTES 7.5 % (0-9.0); MYELOCYTES 1.9 %; NUCLEATED RBC'S 8.5; PLAT.SUFFICIENCY ADEQUATE; POLYCHROMASIA 1+; SEG.NEUTROPHILS 75.5 % (46.0-76.0)
[2018-03-14 04:27] VITALS: BP 155/72
[2018-03-14 05:54] LABS: HEMATOCRIT 22.1 % (36.0-46.0); HEMOGLOBIN 7.2 G/DL (11.9-15.5); MCH 33.3 PG (29.0-34.0); MCHC 32.6 G/DL (30.0-36.0); MCV 102.3 FL (83-99); NRBC (%) 4.7 /100 WBC (0-0); PLATELET COUNT 201 K/uL (156-360); RBC DIS.WIDTH-CV 19.8 % (11.8-14.6); RBC DIS.WIDTH-SD 69.4 % (39-53); RED BLOOD COUNT 2.16 M/uL (3.80-5.20); WHITE BLOOD COUNT 16.1 K/uL (4.1-10.2)
[2018-03-14 06:25] LABS: ALBUMIN 2.3 G/DL (3.2-4.8); ALKALINE PHOSPHATASE 128 IU/L (3-129); ALT (GPT) 20 IU/L (3-49); AST (GOT) 37 IU/L (2-34); CHLORIDE 100 MEQ/L (99-109); CREATININE 0.9 MG/DL (0.6-1.3); GFR ESTIMATE (CALCULATED) > 59 mL/min/; GLUCOSE 148 mg/dL (70-99); LACTATE DEHYDROGENASE 413 IU/L (20-246); POTASSIUM 4.6 MEQ/L (3.7-5.4); SODIUM 127 MEQ/L (136-147); TOTAL BILIRUBIN 3.1 MG/DL (0.0-1.0); TOTAL PROTEIN 9.8 G/DL (6.4-8.3); UREA NITROGEN (BUN) 27 mg/dL (9-23)
[2018-03-14 08:00] VITALS: BP 163/94
[2018-03-14 08:29] LABS: MAGNESIUM 1.9 mg/dl (1.3-2.7)
[2018-03-14 11:45] VITALS: BP 150/67
[2018-03-14 14:00] LABS: C DIFF TOXIN NEGATIVE (NEGATIVE)
[2018-03-14 15:09] VITALS: BP 148/71
[2018-03-14 18:31] LABS: HEMATOCRIT 22.2 % (36.0-46.0); HEMOGLOBIN 7.1 G/DL (11.9-15.5); MCH 33.3 PG (29.0-34.0); MCV 104.2 FL (83-99); NRBC (%) 5.3 /100 WBC (0-0); PLATELET COUNT 182 K/uL (156-360); RBC DIS.WIDTH-CV 19.4 % (11.8-14.6); RBC DIS.WIDTH-SD 66.8 % (39-53); RED BLOOD COUNT 2.13 M/uL (3.80-5.20)
[2018-03-14 18:59] LABS: BASOPHIL (%) 0.2 % (0-1); EOSINOPHIL (%) 0.1 % (0-5); IMMATURE GRANULOCYTE (%) 4.9 % (0.0-0.7); LYMPHOCYTE (%) 28.1 % (15-42); LYMPHOCYTE COUNT 3.6 K/uL (1.0-2.8); MONOCYTE (%) 14.1 % (3-12); MONOCYTE COUNT 1.8 K/uL (0-0.8); NEUTROPHIL (%) 52.6 % (45-76); NEUTROPHIL COUNT 6.8 K/uL (1.8-6.4)
[2018-03-14 19:11] LABS: CHLORIDE 104 MEQ/L (99-109); GFR ESTIMATE (CALCULATED) 57 mL/min/; GLUCOSE 191 mg/dL (70-99); POTASSIUM 4.1 MEQ/L (3.7-5.4); SODIUM 130 MEQ/L (136-147); UREA NITROGEN (BUN) 25 mg/dL (9-23)
[2018-03-14 21:45] VITALS: BP 154/72
[2018-03-14 23:16] VITALS: BP 158/69
[2018-03-15] VITALS (10 sets, daily range): BP systolic 144–169; BP diastolic 70–87
[2018-03-15 06:50] LABS: HEMATOCRIT 21.9 % (36.0-46.0); MCH 33.8 PG (29.0-34.0); MCHC 31.5 G/DL (30.0-36.0); MCV 107.4 FL (83-99); NRBC (%) 5.3 /100 WBC (0-0); PLATELET COUNT 164 K/uL (156-360); RBC DIS.WIDTH-CV 19.6 % (11.8-14.6); RBC DIS.WIDTH-SD 67.4 % (39-53); RED BLOOD COUNT 2.04 M/uL (3.80-5.20); WHITE BLOOD COUNT 9.3 K/uL (4.1-10.2)
[2018-03-15 06:52] LABS: HEMOGLOBIN 6.9 G/DL (11.9-15.5)
[2018-03-15 07:07] LABS: ALBUMIN 2.2 G/DL (3.2-4.8); ALKALINE PHOSPHATASE 137 IU/L (3-129); ALT (GPT) 26 IU/L (3-49); AST (GOT) 49 IU/L (2-34); CHLORIDE 107 MEQ/L (99-109); CREATININE 0.9 MG/DL (0.6-1.3); GFR ESTIMATE (CALCULATED) > 59 mL/min/; GLUCOSE 121 mg/dL (70-99); LACTATE DEHYDROGENASE 375 IU/L (20-246); PHOSPHORUS 3.8 mg/dL (2.5-4.9); POTASSIUM 4.1 MEQ/L (3.7-5.4); SODIUM 136 MEQ/L (136-147); TOTAL PROTEIN 9.4 G/DL (6.4-8.3); UREA NITROGEN (BUN) 23 mg/dL (9-23); URIC ACID 10.5 mg/dL (3.1-9.2)
[2018-03-15 07:09] LABS: TOTAL BILIRUBIN 1.9 MG/DL (0.0-1.0)
[2018-03-15 07:14] LABS: ABS NEUTROPHIL COUNT 7.2; ANISOCYTOSIS 2+; ATYPICAL LYMPHOCYTE 1.8 %; BAND NEUTROPHILS 4.4 % (0-8.0); EOSINOPHIL ABS CT 0; LYMPHOCYTES 11.5 % (15.0-45.0); MACROCYTES 2+; METAMYELOCYTES 2.7 %; MONOCYTES 4.4 % (0-9.0); MYELOCYTES 2.6 %; NUCLEATED RBC'S 2.7; POLYCHROMASIA 1+; SEG.NEUTROPHILS 72.6 % (46.0-76.0); SMUDGE CELLS 11.5
[2018-03-15 17:55] LABS: HEMATOCRIT 24.1 % (36.0-46.0); MCH 34.6 PG (29.0-34.0); MCHC 33.2 G/DL (30.0-36.0); MCV 104.3 FL (83-99); NRBC (%) 5.5 /100 WBC (0-0); PLATELET COUNT 138 K/uL (156-360); RBC DIS.WIDTH-CV 20.4 % (11.8-14.6); RBC DIS.WIDTH-SD 66.3 % (39-53); RED BLOOD COUNT 2.31 M/uL (3.80-5.20); WHITE BLOOD COUNT 7.8 K/uL (4.1-10.2)
[2018-03-16 03:45] VITALS: BP 130/64
[2018-03-16 06:40] LABS: HEMOGLOBIN 7.4 G/DL (11.9-15.5); MCH 34.1 PG (29.0-34.0); MCHC 32.2 G/DL (30.0-36.0); NRBC (%) 5.5 /100 WBC (0-0); PLATELET COUNT 129 K/uL (156-360); RBC DIS.WIDTH-CV 21.6 % (11.8-14.6); RBC DIS.WIDTH-SD 67.1 % (39-53); RED BLOOD COUNT 2.17 M/uL (3.80-5.20); WHITE BLOOD COUNT 5.7 K/uL (4.1-10.2)
[2018-03-16 07:01] LABS: CHLORIDE 102 MEQ/L (99-109); CREATININE 0.8 MG/DL (0.6-1.3); GFR ESTIMATE (CALCULATED) > 59 mL/min/; GLUCOSE 125 mg/dL (70-99); MAGNESIUM 1.9 mg/dl (1.3-2.7); POTASSIUM 4.6 MEQ/L (3.7-5.4); SODIUM 131 MEQ/L (136-147); UREA NITROGEN (BUN) 25 mg/dL (9-23)
[2018-03-16 07:06] LABS: BASOPHIL (%) 0.2 % (0-1); EOSINOPHIL (%) 0.4 % (0-5); IMMATURE GRANULOCYTE (%) 4.9 % (0.0-0.7); LYMPHOCYTE (%) 19.9 % (15-42); LYMPHOCYTE COUNT 1.1 K/uL (1.0-2.8); MONOCYTE (%) 9.2 % (3-12); MONOCYTE COUNT 0.5 K/uL (0-0.8); NEUTROPHIL (%) 65.4 % (45-76); NEUTROPHIL COUNT 3.7 K/uL (1.8-6.4)
[2018-03-16 07:17] VITALS: BP 163/83
[2018-03-16 12:00] VITALS: BP 138/60
[2018-03-16 14:22] LABS: PHOSPHORUS 3.7 mg/dL (2.5-4.9); URIC ACID 9.3 mg/dL (3.1-9.2)
[2018-03-16 16:39] VITALS: BP 158/80
[2018-03-16 19:59] LABS: HEMATOCRIT 23.4 % (36.0-46.0); HEMOGLOBIN 7.6 G/DL (11.9-15.5); MCH 34.5 PG (29.0-34.0); MCHC 32.5 G/DL (30.0-36.0); MCV 106.4 FL (83-99); NRBC (%) 4.8 /100 WBC (0-0); PLATELET COUNT 110 K/uL (156-360); RBC DIS.WIDTH-SD 63.2 % (39-53); WHITE BLOOD COUNT 4.4 K/uL (4.1-10.2)
[2018-03-16 20:24] VITALS: BP 150/73
[2018-03-16 21:27] LABS: ABS NEUTROPHIL COUNT 3.3; ANISOCYTOSIS 3+; ATYPICAL LYMPHOCYTE 1.8 %; BAND NEUTROPHILS 19.8 % (0-8.0); EOSINOPHIL ABS CT 0; HYPOCHROMASIA 2+; LYMPHOCYTES 12.6 % (15.0-45.0); MACROCYTES 3+; METAMYELOCYTES 2.7 %; MONOCYTES 6.3 % (0-9.0); MYELOCYTES 0.9 %; NUCLEATED RBC'S 2.7; PLAT.SUFFICIENCY DECREASED; POLYCHROMASIA 3+; SEG.NEUTROPHILS 55.9 % (46.0-76.0)
[2018-03-17 00:54] VITALS: BP 152/76
[2018-03-17 06:15] LABS: HEMATOCRIT 23.2 % (36.0-46.0); HEMOGLOBIN 7.2 G/DL (11.9-15.5); MCH 33.5 PG (29.0-34.0); MCV 107.9 FL (83-99); NRBC (%) 5.4 /100 WBC (0-0); PLATELET COUNT 108 K/uL (156-360); RBC DIS.WIDTH-CV 20.7 % (11.8-14.6); RBC DIS.WIDTH-SD 62.9 % (39-53); RED BLOOD COUNT 2.15 M/uL (3.80-5.20); WHITE BLOOD COUNT 4.4 K/uL (4.1-10.2)
[2018-03-17 06:42] LABS: ALBUMIN 2.4 G/DL (3.2-4.8); CHLORIDE 99 MEQ/L (99-109); CREATININE 0.7 MG/DL (0.6-1.3); DIRECT BILIRUBIN 1.4 mg/dL (0.0-0.3); GFR ESTIMATE (CALCULATED) > 59 mL/min/; GLUCOSE 104 mg/dL (70-99); POTASSIUM 4.2 MEQ/L (3.7-5.4); SODIUM 130 MEQ/L (136-147); TOTAL PROTEIN 8.8 G/DL (6.4-8.3); UREA NITROGEN (BUN) 21 mg/dL (9-23)
[2018-03-17 06:46] LABS: ALKALINE PHOSPHATASE 239 IU/L (3-129); ALT (GPT) 67 IU/L (3-49); AST (GOT) 110 IU/L (2-34); TOTAL BILIRUBIN 2.6 MG/DL (0.0-1.0)
[2018-03-17 08:24] VITALS: BP 166/86
[2018-03-17 11:30] VITALS: BP 138/69
[2018-03-17 15:30] VITALS: BP 147/71
[2018-03-17 16:20] LABS: HEMATOCRIT 23.6 % (36.0-46.0); HEMOGLOBIN 7.7 G/DL (11.9-15.5); MCH 34.7 PG (29.0-34.0); MCHC 32.6 G/DL (30.0-36.0); MCV 106.3 FL (83-99); NRBC (%) 5.7 /100 WBC (0-0); PLATELET COUNT 109 K/uL (156-360); RBC DIS.WIDTH-CV 20.6 % (11.8-14.6); RBC DIS.WIDTH-SD 60.1 % (39-53); RED BLOOD COUNT 2.22 M/uL (3.80-5.20); WHITE BLOOD COUNT 3.7 K/uL (4.1-10.2)
[2018-03-17 16:45] LABS: ANISOCYTOSIS 2+; BASOPHIL (%) 0 % (0-1); EOSINOPHIL (%) 0 % (0-5); IMMATURE GRANULOCYTE (%) 4.6 % (0.0-0.7); LYMPHOCYTE (%) 19.6 % (15-42); LYMPHOCYTE COUNT 0.7 K/uL (1.0-2.8); MACROCYTES 2+; MONOCYTE (%) 4.4 % (3-12); MONOCYTE COUNT 0.2 K/uL (0-0.8); NEUTROPHIL (%) 71.4 % (45-76); NEUTROPHIL COUNT 2.6 K/uL (1.8-6.4); PLAT.SUFFICIENCY DECREASED
[2018-03-17 20:17] LABS: HEMATOCRIT 22.3 % (36.0-46.0); HEMOGLOBIN 7.2 G/DL (11.9-15.5); MCH 34.6 PG (29.0-34.0); MCHC 32.3 G/DL (30.0-36.0); MCV 107.2 FL (83-99); NRBC (%) 4.7 /100 WBC (0-0); PLATELET COUNT 108 K/uL (156-360); RBC DIS.WIDTH-CV 20.5 % (11.8-14.6); RBC DIS.WIDTH-SD 60.3 % (39-53); RED BLOOD COUNT 2.08 M/uL (3.80-5.20); WHITE BLOOD COUNT 3.4 K/uL (4.1-10.2)
[2018-03-17 20:51] LABS: ABS NEUTROPHIL COUNT 2.7; ANISOCYTOSIS 2+; ATYPICAL LYMPHOCYTE 1.8 %; BAND NEUTROPHILS 13.8 % (0-8.0); BASOPH.STIPPLING 2+; EOSINOPHIL ABS CT 0; MACROCYTES 2+; MONOCYTES 7.4 % (0-9.0); NUCLEATED RBC'S 4.6; PLAT.SUFFICIENCY DECREASED; POIKILOCYTOSIS 1+; POLYCHROMASIA 2+; SEG.NEUTROPHILS 65.1 % (46.0-76.0); TEAR DROP CELLS 1+
[2018-03-17 23:12] VITALS: BP 169/80
[2018-03-18 06:56] LABS: ALBUMIN 2.3 G/DL (3.2-4.8); ALKALINE PHOSPHATASE 256 IU/L (3-129); ALT (GPT) 93 IU/L (3-49); AST (GOT) 132 IU/L (2-34); CHLORIDE 97 MEQ/L (99-109); CREATININE 0.6 MG/DL (0.6-1.3); GFR ESTIMATE (CALCULATED) > 59 mL/min/; GLUCOSE 110 mg/dL (70-99); POTASSIUM 4.2 MEQ/L (3.7-5.4); SODIUM 128 MEQ/L (136-147); TOTAL PROTEIN 8.5 G/DL (6.4-8.3); UREA NITROGEN (BUN) 19 mg/dL (9-23)
[2018-03-18 07:14] LABS: TOTAL BILIRUBIN 1.7 MG/DL (0.0-1.0)
[2018-03-18 07:42] VITALS: BP 162/73
[2018-03-18 12:04] VITALS: BP 143/69
[2018-03-18 13:44] LABS: HEMATOCRIT 23.1 % (36.0-46.0); HEMOGLOBIN 7.5 G/DL (11.9-15.5); MCH 34.7 PG (29.0-34.0); MCHC 32.5 G/DL (30.0-36.0); MCV 106.9 FL (83-99); NRBC (%) 2.1 /100 WBC (0-0); PLATELET COUNT 117 K/uL (156-360); RBC DIS.WIDTH-CV 20.5 % (11.8-14.6); RBC DIS.WIDTH-SD 61.1 % (39-53); RED BLOOD COUNT 2.16 M/uL (3.80-5.20); WHITE BLOOD COUNT 5.8 K/uL (4.1-10.2)
[2018-03-18 14:49] LABS: ABS NEUTROPHIL COUNT 5.3; ANISOCYTOSIS 2+; BAND NEUTROPHILS 15.7 % (0-8.0); BASOPH.STIPPLING 1+; EOSINOPHIL ABS CT 0; HYPOCHROMASIA 2+; LYMPHOCYTES 2.6 % (15.0-45.0); MACROCYTES 2+; MONOCYTES 4.3 % (0-9.0); NUCLEATED RBC'S 1.7; OTHER 0.9; PLAT.SUFFICIENCY ADEQUATE; SEG.NEUTROPHILS 76.5 % (46.0-76.0)
[2018-03-18 16:24] VITALS: BP 156/74
[2018-03-18 19:39] VITALS: BP 158/73
[2018-03-18 23:33] VITALS: BP 150/70
[2018-03-19 03:46] VITALS: BP 157/74
[2018-03-19 06:25] LABS: HEMOGLOBIN 7.5 G/DL (11.9-15.5); MCH 34.7 PG (29.0-34.0); MCHC 32.6 G/DL (30.0-36.0); MCV 106.5 FL (83-99); NRBC (%) 1.8 /100 WBC (0-0); PLATELET COUNT 142 K/uL (156-360); RBC DIS.WIDTH-CV 20.7 % (11.8-14.6); RBC DIS.WIDTH-SD 58.5 % (39-53); RED BLOOD COUNT 2.16 M/uL (3.80-5.20); WHITE BLOOD COUNT 5.5 K/uL (4.1-10.2)
[2018-03-19 06:47] LABS: ALBUMIN 2.5 G/DL (3.2-4.8); ALKALINE PHOSPHATASE 307 IU/L (3-129); ALT (GPT) 127 IU/L (3-49); AST (GOT) 154 IU/L (2-34); CHLORIDE 95 MEQ/L (99-109); CREATININE 0.6 MG/DL (0.6-1.3); GFR ESTIMATE (CALCULATED) > 59 mL/min/; GLUCOSE 89 mg/dL (70-99); SODIUM 127 MEQ/L (136-147); TOTAL BILIRUBIN 1.7 MG/DL (0.0-1.0); TOTAL PROTEIN 8.5 G/DL (6.4-8.3); UREA NITROGEN (BUN) 17 mg/dL (9-23)
[2018-03-19 06:54] LABS: BASOPHIL (%) 0.2 % (0-1); EOSINOPHIL (%) 0.5 % (0-5); IMMATURE GRANULOCYTE (%) 1.1 % (0.0-0.7); LYMPHOCYTE (%) 27.4 % (15-42); LYMPHOCYTE COUNT 1.5 K/uL (1.0-2.8); MONOCYTE (%) 11.3 % (3-12); MONOCYTE COUNT 0.6 K/uL (0-0.8); NEUTROPHIL (%) 59.5 % (45-76); NEUTROPHIL COUNT 3.3 K/uL (1.8-6.4)
[2018-03-19 07:11] VITALS: BP 156/74
[2018-03-19 11:25] VITALS: BP 138/77
[2018-03-19 16:42] VITALS: BP 148/70
[2018-03-19 20:09] VITALS: BP 133/60
[2018-03-19 23:44] VITALS: BP 159/76
[2018-03-20] VITALS (8 sets, daily range): BP systolic 108–169; BP diastolic 56–84
[2018-03-20 07:29] LABS: ALBUMIN 2.4 G/DL (3.2-4.8); ALKALINE PHOSPHATASE 336 IU/L (3-129); ALT (GPT) 134 IU/L (3-49); AST (GOT) 140 IU/L (2-34); CHLORIDE 93 MEQ/L (99-109); CREATININE 0.5 MG/DL (0.6-1.3); GFR ESTIMATE (CALCULATED) > 59 mL/min/; GLUCOSE 98 mg/dL (70-99); POTASSIUM 3.9 MEQ/L (3.7-5.4); SODIUM 124 MEQ/L (136-147); TOTAL BILIRUBIN 1.4 MG/DL (0.0-1.0); TOTAL PROTEIN 7.7 G/DL (6.4-8.3); UREA NITROGEN (BUN) 17 mg/dL (9-23)
[2018-03-20 10:47] LABS: HEPATITIS B SURFACE ANTIGEN Nonreactive; HEPATITIS C ANTIBODY Nonreactive
[2018-03-20 10:49] LABS: ANTI-HEPATITIS A VIRUS (IGM) Nonreactive
[2018-03-20 10:50] LABS: ANTI-HEPATITIS B CORE (IGM) Nonreactive
[2018-03-21 06:24] LABS: BASOPHIL (%) 0 % (0-1); EOSINOPHIL (%) 1.4 % (0-5); EOSINOPHIL COUNT 0.1 K/uL (0-0.3); HEMATOCRIT 26.3 % (36.0-46.0); IMMATURE GRANULOCYTE (%) 1.2 % (0.0-0.7); LYMPHOCYTE COUNT 1.5 K/uL (1.0-2.8); MCHC 34.2 G/DL (30.0-36.0); MCV 105.2 FL (83-99); MONOCYTE (%) 13.9 % (3-12); MONOCYTE COUNT 0.7 K/uL (0-0.8); NEUTROPHIL (%) 55.5 % (45-76); NEUTROPHIL COUNT 2.9 K/uL (1.8-6.4); PLATELET COUNT 203 K/uL (156-360); RBC DIS.WIDTH-CV 21.2 % (11.8-14.6); RBC DIS.WIDTH-SD 76.6 % (39-53); WHITE BLOOD COUNT 5.2 K/uL (4.1-10.2)
[2018-03-21 06:30] LABS: INTER. NORMALIZED RATIO 2.2
[2018-03-21 06:32] LABS: PTT 30.8 SEC (25-37)
[2018-03-21 08:35] LABS: A/G RATIO 0.5 (1.1-1.8); ALBUMIN 2.5 G/DL (3.2-4.8); ALBUMIN 2.5 G/DL (3.4-5.0); ALKALINE PHOSPHATASE 258 IU/L (3-129); ALT (GPT) 134 IU/L (3-49); AST (GOT) 108 IU/L (2-34); DIRECT BILIRUBIN 0.4 mg/dL (0.0-0.3); GLOBULINS 5.2 G/DL (2.3-3.5); TOTAL BILIRUBIN 1.1 MG/DL (0.0-1.0); TOTAL PROTEIN 7.7 G/DL (6.4-8.2); TOTAL PROTEIN 7.7 G/DL (6.4-8.3); TRANSFERRIN (TIBC) 151.4 mg/dL (215-380)
[2018-03-21 09:25] VITALS: BP 136/67
[2018-03-21 17:05] VITALS: BP 108/56
[2018-03-21 20:26] VITALS: BP 135/62
[2018-03-21 21:00] VITALS: BP 110/60
[2018-03-22 00:01] VITALS: BP 114/61
[2018-03-22 07:12] LABS: CHLORIDE 95 MEQ/L (99-109); CREATININE 0.6 MG/DL (0.6-1.3); GFR ESTIMATE (CALCULATED) > 59 mL/min/; GLUCOSE 87 mg/dL (70-99); POTASSIUM 3.9 MEQ/L (3.7-5.4)
[2018-03-22 07:15] LABS: SODIUM 131 MEQ/L (136-147); UREA NITROGEN (BUN) 32 mg/dL (9-23)
[2018-03-22 07:20] VITALS: BP 142/75
[2018-03-22 07:30] VITALS: BP 135/65
[2018-03-22] MEDS ORDERED: BUMETANIDE1 MG PO (10:35)
[2018-03-22] MEDS ORDERED: PREDNISONE20 MG PO (10:35)
[2018-03-22] MEDS ORDERED: SODIUM CHLORIDE1 G1 PO (10:35)
[2018-03-24 13:32] LABS: ALBUMIN 2.89 G/DL (3.6-4.9); ALPHA-1 GLOBULIN 0.25 G/DL (0.15-0.40); ALPHA-2 GLOBULIN 0.49 G/DL (0.45-0.85); BETA-GLOBULIN 0.72 G/DL (0.65-1.15); GAMMA-GLOBULIN 3.36 G/DL (0.60-1.35)
== END 2018-03-22 14:35 | DRG 809 ==
LOC: EME 11:21 → 5EAST 13:31 → 4EAST 13:31 → EDOF 13:31 → ENRESERV 13:32 → 4EAST 16:13 → ENRESERV 03-14 10:06 → 5EAST 03-14 11:44
PROVIDERS: Emergency Medicine; Hospitalist; Internal Medicine; Internal Medicine Hematology & Oncology; Internal Medicine Medical Oncology; Physician Assistant; Specialist
PROC: 30233N1 Transfusion of Nonautologous Red Blood Cells into Peripheral Vein, Percutaneous Approach (ICD-10-PCS; principal; 2018-03-13)
PROC: 3E03305 Introduction of Other Antineoplastic into Peripheral Vein, Percutaneous Approach (ICD-10-PCS; 2018-03-14)
DX: D59.1 Other autoimmune hemolytic anemias (principal); E87.2 Acidosis; C86.5 Angioimmunoblastic T-cell lymphoma; E22.2 Syndrome of inappropriate secretion of antidiuretic hormone; B37.0 Candidal stomatitis; I11.0 Hypertensive heart disease with heart failure; I50.22 Chronic systolic (congestive) heart failure; R09.02 Hypoxemia; I42.9 Cardiomyopathy, unspecified; I48.0 Paroxysmal atrial fibrillation; I48.92 Unspecified atrial flutter; T84.53XA Infection and inflammatory reaction due to internal right knee prosthesis, initial encounter; M00.9 Pyogenic arthritis, unspecified; Y83.1 Surgical operation with implant of artificial internal device as the cause of abnormal reaction of the patient, or of later complication, without mention of misadventure at the time of the procedure; I44.7 Left bundle-branch block, unspecified; R79.89 Other specified abnormal findings of blood chemistry; Z66 Do not resuscitate; Z96.612 Presence of left artificial shoulder joint; Z96.651 Presence of right artificial knee joint; Z79.01 Long term (current) use of anticoagulants; Z79.52 Long term (current) use of systemic steroids; Z85.828 Personal history of other malignant neoplasm of skin; Z86.19 Personal history of other infectious and parasitic diseases; Z87.442 Personal history of urinary calculi
CPT/HCPCS: 71045; 74177; 76705; 80048; 80048 91; 80053; 80074; 80076; 83010 90; 83605; 83615; 83735; 83880; 84100; 84165; 84466; 84550; 85007; 85025; 85025 91; 85027; 85046; 85060; 85610; 85651; 85730; 86140; 86256 90; 86850; 86860; 86870; 86880; 86885; 86900; 86901; 86904; 86906; 86920; 86971; 86978; 87040; 87493; 94640; 94799; 99281; 99285; C9113; J1626; J1940; J2543; J2930; J7030; J7050; J7512; J9070; P9016; P9040

== ENCOUNTER 2018-04-13 22:23 | Emergency (ER) | payer OTHER, MEDICARE ==
[~2018-04-13] VITALS: Ht 154.9 cm; Wt 58.0 kg
[~2018-04-13 22:23] MED LIST changes: +BACTRIM,SEPT1 TABLE1 PO; +BUMETANIDE1 MG PO; +DULCOLAX10 MG PR; +GUAIFENESIN600 MG PO; +MILK OF MAGN PO; +MIRALAX17 GM PO; +NORVASC5 MG PO; +PREDNISONE20 MG PO; +ROBITUSSIN DM118 ML PO; +SYNTHROID25 MCG PO; +TYLENOL REGULA325 MG PO; +VANCOCIN 250 M250 MG PO; +ZESTRIL40 MG PO; +ZOSYN 3.3753.375 GM IV
[2018-04-13 23:22] LABS: HEMATOCRIT 29.2 % (36.0-46.0); HEMOGLOBIN 9.7 G/DL (11.9-15.5); MCH 34.2 PG (29.0-34.0); MCHC 33.2 G/DL (30.0-36.0); MCV 102.8 FL (83-99); PLATELET COUNT 311 K/uL (156-360); RBC DIS.WIDTH-CV 16.7 % (11.8-14.6); RBC DIS.WIDTH-SD 61.2 % (39-53); RED BLOOD COUNT 2.84 M/uL (3.80-5.20); WHITE BLOOD COUNT 9.2 K/uL (4.1-10.2)
[2018-04-13 23:24] LABS: CHLORIDE 102 mEq/L (99-109); POTASSIUM 3.7 mEq/L (3.7-5.4); SODIUM 138 mEq/L (136-147)
[2018-04-13 23:26] LABS: GLUCOSE 122 mg/dL (70-99)
[2018-04-13 23:30] LABS: CREATININE 0.9 mg/dL (0.6-1.3); GFR ESTIMATE (CALCULATED) > 59 mL/min/
[2018-04-13 23:31] LABS: INTER. NORMALIZED RATIO 2.1; UREA NITROGEN (BUN) 30 mg/dL (9-23)
[2018-04-14] MEDS ORDERED: CLEOCIN300 MG PO (00:52)
[2018-04-14] MEDS ORDERED: TYLENOL325 M2 PO (00:52)
[2018-04-14 01:37] VITALS: BP 133/65
== END 2018-04-14 01:38 | disposition home or self-care (01) ==
LOC: EME 22:23
PROC: 2Y41X5Z Packing of Nasal Region using Packing Material (ICD-10-PCS; principal; 2018-04-14)
DX: R04.0 Epistaxis (principal); I48.91 Unspecified atrial fibrillation; Z79.01 Long term (current) use of anticoagulants; E78.5 Hyperlipidemia, unspecified; I10 Essential (primary) hypertension; Z85.72 Personal history of non-Hodgkin lymphomas; Z96.612 Presence of left artificial shoulder joint; Z88.8 Allergy status to other drugs, medicaments and biological substances
CPT/HCPCS: 80048; 85027; 85610; 99281; 99283